=== PATIENT | male | born 1995 | race Caucasian/White ===

== ENCOUNTER 2021-11-12 16:06 | Inpatient (IN) | payer OTHER ==
[~2021-11-12] VITALS: Ht 177.8 cm; Wt 63.5 kg
[2021-11-12] MEDS ORDERED: ACETAMINOPHEN 325MG TABLET PO STA (17:04)
[2021-11-12] MEDS ORDERED: PIPERACILLIN/TAZ 3.375G PREMIX 50 ML IV NR (17:12)
[2021-11-12] MEDS ORDERED: PIPERACILLIN/TAZOBACTAM 3.375GM/50ML PREMIX IV ONE (17:15)
[2021-11-12 17:48] LABS: BASOPHILS % 1.5 % (0.0-2.0); EOSINOPHILS % 1.4 % (0.0-5.0); HEMATOCRIT. 29.9 % (42.0-52.0); HEMOGLOBIN. 9.7 g/dL (14.0-18.0); LYMPHOCYTES % 18.8 % (20.0-50.0); MEAN CORPUSCULAR HEMOGLOBIN 27.7 pg (28.0-32.0); MEAN CORPUSCULAR VOLUME 85.4 fL (80.0-94.0); MEAN PLATELET VOLUME 6.5 fl (7.4-10.4); MONOCYTES % 5.9 % (2.0-8.0); NEUTROPHILS % 72.4 % (40.0-76.0); PLATELET 798 x1000/uL (130-400); RED CELL DISTRIBUTION WIDTH 16.6 % (11.6-14.6)
[2021-11-12 18:06] LABS: CLARITY URINE TURBID (CLEAR); COLOR URINE RED (YELLOW); KETONES URINE NEGATIVE (NEGATIVE); LEUKOCYTE ESTERASE URINE 2+ (NEGATIVE); NITRITE URINE NEGATIVE (NEGATIVE); OCCULT BLOOD URINE 3+ (NEGATIVE); PROTEIN URINE 1+ (NEGATIVE); SPECIFIC GRAVITY URINE 1.027 (1.005-1.030); UROBILINOGEN URINE 0.2 E.U./dL (0.2-1.0)
[2021-11-12 18:21] LABS: CHLORIDE 109 mEq/L (98-107)
[2021-11-12] MEDS ORDERED: LACTATED RINGERS 1,800 ML IV STA (19:29)
[2021-11-12] MEDS ORDERED: LEVETIRACETAM 1000MG PREMIX 100 ML IV NR (20:52)
[2021-11-12] MEDS ORDERED: ENOXAPARIN 60MG/0.6ML SYR SUBCUT NR (21:00)
[2021-11-12] MEDS ORDERED: ONDANSETRON HCL 4MG/2ML INJ IV PRN (21:15)
[2021-11-12 21:20] LABS: INR 1.4; PARTIAL THROMBOPLASTIN TIME 34.6 sec (23.4-31.0); PROTHROMBIN TIME 14.3 sec (9.6-11.0)
[2021-11-12] MEDS ORDERED: LEVETIRACETAM 500MG PREMIX 100 ML IV SCH (21:38)
[2021-11-12] MEDS: SODIUM CHLORIDE 0.9% 1,000 ML IV SCH (22:09)
[2021-11-13 09:00] VITALS: BP 130/84
[2021-11-13] MEDS ORDERED: TOPUD MT (09:25)
[2021-11-13] MEDS ORDERED: FE300LUD MT (09:38)
[2021-11-13] MEDS ORDERED: MUC20 NEB (09:38)
[2021-11-13] MEDS ORDERED: XAR15 GT (09:38)
[2021-11-13] MEDS ORDERED: COLL30OI TP (09:38)
[2021-11-13] MEDS ORDERED: IPRA3AMP31 NEB (09:38)
[2021-11-13] MEDS ORDERED: SODI1TAB3 PO (09:38)
[2021-11-13] MEDS: LEVETIRACETAM 500MG PREMIX 100 ML IV SCH ×2 (11:35→22:35)
[2021-11-13] MEDS: SODIUM CHLORIDE 0.9% 1,000 ML IV SCH ×2 (11:35→14:31)
[2021-11-13] MEDS: ENOXAPARIN 60MG/0.6ML SYR SUBCUT SCH ×2 (11:36→22:21)
[2021-11-13 12:00] VITALS: BP 115/64
[2021-11-13] MEDS ORDERED: PNEUMOCOCCAL 23-VAL P-SAC VAC 0.5 ML IM ONE (12:30)
[2021-11-13] MEDS: LACTOBACILLUS GG CAPSULE PO SCH (14:11)
[2021-11-13] MEDS ORDERED: VANCOMYCIN 1250MG in DEXTROSE 5% WATER 250ML IV SCH (15:00)
[2021-11-13] MEDS: CEFEPIME 2,000 MG in DEXT 5% WATER 100 ML IV SCH ×2 (15:14→22:21)
[2021-11-13 15:52] LABS: EOSINOPHILS % 4.1 % (0.0-5.0); HEMATOCRIT. 28.3 % (42.0-52.0); HEMOGLOBIN. 9.3 g/dL (14.0-18.0); LYMPHOCYTES % 24.9 % (20.0-50.0); MEAN CORPUSCULAR HEMOGLOBIN 28.3 pg (28.0-32.0); MEAN CORPUSCULAR VOLUME 85.8 fL (80.0-94.0); MEAN PLATELET VOLUME 6.8 fl (7.4-10.4); MONOCYTES % 6.8 % (2.0-8.0); NEUTROPHILS % 62.2 % (40.0-76.0); PLATELET 594 x1000/uL (130-400); RED CELL DISTRIBUTION WIDTH 16.7 % (11.6-14.6)
[2021-11-13 16:00] VITALS: BP 122/84
[2021-11-13 16:15] LABS: CHLORIDE 109 mEq/L (98-107)
[2021-11-13 16:22] LABS: TOTAL IRON BINDING CAPACITY 194 ug/dL (250-450)
[2021-11-13 16:24] VITALS: BP 130/84
[2021-11-13] MEDS: IPRATROPIUM BROMIDE (0.02%) 0.5MG/2.5ML NEB HHN SCH ×2 (17:28→21:17)
[2021-11-13] MEDS: FERROUS SULFATE 300MG/5ML UDC GT SCH (18:11)
[2021-11-13 20:00] VITALS: BP 123/75
[2021-11-13] MEDS: ACETYLCYSTEINE 100MG/ML 10% VIAL 4ML INH PRN (21:18)
[2021-11-13] MEDS ORDERED: VANCOMYCIN 1 G PREMIX 200 ML IV SCH (23:00)
[2021-11-14] VITALS: BP 120/90
[2021-11-14] MEDS: IPRATROPIUM BROMIDE (0.02%) 0.5MG/2.5ML NEB HHN SCH ×6 (00:11→21:01)
[2021-11-14] MEDS: SODIUM CHLORIDE 0.9% 1,000 ML IV SCH ×2 (02:21→15:53)
[2021-11-14 04:00] VITALS: BP 139/87
[2021-11-14] MEDS ORDERED: VANCOMYCIN 1 G PREMIX 200 ML IV SCH (05:00)
[2021-11-14 06:20] LABS: BASOPHILS % 1.2 % (0.0-2.0); EOSINOPHILS % 2.1 % (0.0-5.0); HEMATOCRIT. 28.2 % (42.0-52.0); HEMOGLOBIN. 9.8 g/dL (14.0-18.0); LYMPHOCYTES % 16.5 % (20.0-50.0); MEAN CORPUSCULAR VOLUME 83.6 fL (80.0-94.0); MEAN PLATELET VOLUME 6.7 fl (7.4-10.4); MONOCYTES % 6.6 % (2.0-8.0); NEUTROPHILS % 73.6 % (40.0-76.0); PLATELET 657 x1000/uL (130-400); RED BLOOD CELL COUNT 3.37 mill/uL (4.7-6.1); RED CELL DISTRIBUTION WIDTH 16.2 % (11.6-14.6)
[2021-11-14 06:29] LABS: CHLORIDE 103 mEq/L (98-107)
[2021-11-14] MEDS ORDERED: PNEUMOCOCCAL 23-VAL P-SAC VAC 0.5 ML IM ONE (07:00)
[2021-11-14 08:00] VITALS: BP 122/83
[2021-11-14] MEDS: CEFEPIME 2,000 MG in DEXT 5% WATER 100 ML IV SCH (08:37)
[2021-11-14] MEDS: LACTOBACILLUS GG CAPSULE PO SCH (08:38)
[2021-11-14] MEDS: FERROUS SULFATE 300MG/5ML UDC GT SCH ×2 (08:38→16:45)
[2021-11-14] MEDS: LEVETIRACETAM 500MG PREMIX 100 ML IV SCH ×2 (08:38→22:24)
[2021-11-14] MEDS: ENOXAPARIN 60MG/0.6ML SYR SUBCUT SCH ×2 (08:38→22:24)
[2021-11-14 10:38] LABS: CHLORIDE 103 mEq/L (98-107)
[2021-11-14 12:00] VITALS: BP 108/79
[2021-11-14] MEDS: PIPERACILLIN/TAZOBACTAM 3.375 G in DEXTROSE 5% WATER 50 ML IV SCH ×2 (15:53→23:42)
[2021-11-14 16:00] VITALS: BP 135/96
[2021-11-14 20:00] VITALS: BP 121/75
[2021-11-15] VITALS: BP 130/91
[2021-11-15] MEDS: IPRATROPIUM BROMIDE (0.02%) 0.5MG/2.5ML NEB HHN SCH ×6 (00:13→21:49)
[2021-11-15 04:00] VITALS: BP 117/77
[2021-11-15] MEDS: PIPERACILLIN/TAZOBACTAM 3.375 G in DEXTROSE 5% WATER 50 ML IV SCH ×3 (06:06→22:06)
[2021-11-15 06:48] LABS: EOSINOPHILS % 2.6 % (0.0-5.0); HEMATOCRIT. 27.2 % (42.0-52.0); HEMOGLOBIN. 9.5 g/dL (14.0-18.0); LYMPHOCYTES % 28.2 % (20.0-50.0); MEAN CORPUSCULAR HEMOGLOBIN 28.9 pg (28.0-32.0); MEAN CORPUSCULAR VOLUME 82.4 fL (80.0-94.0); MEAN PLATELET VOLUME 6.8 fl (7.4-10.4); NEUTROPHILS % 60.2 % (40.0-76.0); PLATELET 575 x1000/uL (130-400); RED CELL DISTRIBUTION WIDTH 16.6 % (11.6-14.6)
[2021-11-15 06:54] LABS: CHLORIDE 99 mEq/L (98-107)
[2021-11-15 08:00] VITALS: BP 136/90
[2021-11-15] MEDS: FERROUS SULFATE 300MG/5ML UDC GT SCH ×2 (11:24→18:15)
[2021-11-15] MEDS: LACTOBACILLUS GG CAPSULE PO SCH (11:24)
[2021-11-15] MEDS: LEVETIRACETAM 500MG PREMIX 100 ML IV SCH ×2 (11:24→20:26)
[2021-11-15] MEDS: ENOXAPARIN 60MG/0.6ML SYR SUBCUT SCH ×2 (11:25→20:25)
[2021-11-15 12:00] VITALS: BP 143/101
[2021-11-15 16:00] VITALS: BP 138/89
[2021-11-15 20:00] VITALS: BP 115/86
[2021-11-15] MEDS: SANTYL 250 UNIT/GM TOP SCH (20:25)
[2021-11-16] VITALS: BP 121/84
[2021-11-16] MEDS: IPRATROPIUM BROMIDE (0.02%) 0.5MG/2.5ML NEB HHN SCH ×4 (01:04→21:30)
[2021-11-16] MEDS: METOPROLOL TARTRATE 5MG/5ML VIAL IV PRN ×2 (01:20→18:04)
[2021-11-16 04:00] VITALS: BP 116/76
[2021-11-16] MEDS: ACETYLCYSTEINE 100MG/ML 10% VIAL 4ML INH PRN (04:54)
[2021-11-16] MEDS: PIPERACILLIN/TAZOBACTAM 3.375 G in DEXTROSE 5% WATER 50 ML IV SCH ×3 (05:10→21:56)
[2021-11-16 07:51] LABS: BASOPHILS % 1.2 % (0.0-2.0); EOSINOPHILS % 3.9 % (0.0-5.0); HEMATOCRIT. 29.8 % (42.0-52.0); HEMOGLOBIN. 10.4 g/dL (14.0-18.0); LYMPHOCYTES % 30.2 % (20.0-50.0); MEAN CORPUSCULAR HEMOGLOBIN 29.2 pg (28.0-32.0); MEAN PLATELET VOLUME 6.6 fl (7.4-10.4); MONOCYTES % 9.1 % (2.0-8.0); NEUTROPHILS % 55.6 % (40.0-76.0); PLATELET 593 x1000/uL (130-400); RED BLOOD CELL COUNT 3.54 mill/uL (4.7-6.1); RED CELL DISTRIBUTION WIDTH 16.6 % (11.6-14.6)
[2021-11-16 08:00] VITALS: BP 122/82
[2021-11-16 08:00] LABS: CHLORIDE 101 mEq/L (98-107)
[2021-11-16] MEDS: FERROUS SULFATE 300MG/5ML UDC GT SCH ×2 (08:15→17:04)
[2021-11-16] MEDS: ENOXAPARIN 60MG/0.6ML SYR SUBCUT SCH ×2 (08:16→21:56)
[2021-11-16] MEDS: LACTOBACILLUS GG CAPSULE PO SCH (08:16)
[2021-11-16] MEDS: LEVETIRACETAM 500MG PREMIX 100 ML IV SCH ×2 (08:17→21:57)
[2021-11-16] MEDS: SANTYL 250 UNIT/GM TOP SCH (09:00)
[2021-11-16 12:00] VITALS: BP 123/77
[2021-11-16 16:00] VITALS: BP 132/64
[2021-11-16 20:00] VITALS: BP 129/81
[2021-11-17] VITALS: BP 127/94
[2021-11-17] MEDS: IPRATROPIUM BROMIDE (0.02%) 0.5MG/2.5ML NEB HHN SCH ×6 (00:54→21:15)
[2021-11-17 04:00] VITALS: BP 131/81
[2021-11-17] MEDS: PIPERACILLIN/TAZOBACTAM 3.375 G in DEXTROSE 5% WATER 50 ML IV SCH ×3 (05:23→20:47)
[2021-11-17] MEDS: ACETYLCYSTEINE 100MG/ML 10% VIAL 4ML INH PRN ×3 (07:59→21:16)
[2021-11-17 08:00] VITALS: BP 120/84
[2021-11-17] MEDS ORDERED: KEPP500 MT (08:25)
[2021-11-17] MEDS ORDERED: METOPROLOL TARTRATE 25MG TABLET PO SCH (08:30)
[2021-11-17] MEDS: LACTOBACILLUS GG CAPSULE PO SCH (09:37)
[2021-11-17] MEDS: FERROUS SULFATE 300MG/5ML UDC GT SCH ×2 (09:37→17:08)
[2021-11-17] MEDS: ENOXAPARIN 60MG/0.6ML SYR SUBCUT SCH ×2 (09:39→20:44)
[2021-11-17] MEDS: SANTYL 250 UNIT/GM TOP SCH (09:40)
[2021-11-17] MEDS: LEVETIRACETAM 500MG PREMIX 100 ML IV SCH ×2 (09:40→20:47)
[2021-11-17] MEDS ORDERED: METO25TA6 MT (10:55)
[2021-11-17 12:00] VITALS: BP 124/86
[2021-11-17 16:00] VITALS: BP 159/78
[2021-11-17 20:00] VITALS: BP 121/78
[2021-11-17] MEDS: ACETAMINOPHEN 325MG TABLET PO PRN (20:46)
[2021-11-17] MEDS: METOPROLOL TARTRATE 25MG TABLET PO SCH (20:46)
[2021-11-18] VITALS: BP 138/91
[2021-11-18] MEDS: IPRATROPIUM BROMIDE (0.02%) 0.5MG/2.5ML NEB HHN SCH ×6 (00:48→21:43)
[2021-11-18 04:00] VITALS: BP 117/81
[2021-11-18] MEDS: PIPERACILLIN/TAZOBACTAM 3.375 G in DEXTROSE 5% WATER 50 ML IV SCH ×3 (05:14→21:56)
[2021-11-18 08:00] VITALS: BP 115/56
[2021-11-18] MEDS: FERROUS SULFATE 300MG/5ML UDC GT SCH ×2 (09:28→16:55)
[2021-11-18] MEDS: ENOXAPARIN 60MG/0.6ML SYR SUBCUT SCH ×2 (09:29→20:34)
[2021-11-18] MEDS: METOPROLOL TARTRATE 25MG TABLET PO SCH (09:30)
[2021-11-18] MEDS: LACTOBACILLUS GG CAPSULE PO SCH (09:30)
[2021-11-18] MEDS: SANTYL 250 UNIT/GM TOP SCH (09:41)
[2021-11-18] MEDS: LEVETIRACETAM 500MG PREMIX 100 ML IV SCH ×2 (09:41→20:33)
[2021-11-18 12:00] VITALS: BP 116/78
[2021-11-18] MEDS ORDERED: METHYLPREDNISOLONE SOD SUCC 40 MG/ML VIAL IV NR (13:30)
[2021-11-18 15:31] LABS: BASOPHILS % 0.9 % (0.0-2.0); EOSINOPHILS % 1.1 % (0.0-5.0); HEMATOCRIT. 33.5 % (42.0-52.0); HEMOGLOBIN. 11.1 g/dL (14.0-18.0); LYMPHOCYTES % 18.2 % (20.0-50.0); MEAN CORPUSCULAR HEMOGLOBIN 27.8 pg (28.0-32.0); MEAN CORPUSCULAR VOLUME 84.4 fL (80.0-94.0); MEAN PLATELET VOLUME 6.9 fl (7.4-10.4); MONOCYTES % 5.4 % (2.0-8.0); NEUTROPHILS % 74.4 % (40.0-76.0); PLATELET 519 x1000/uL (130-400); RED BLOOD CELL COUNT 3.97 mill/uL (4.7-6.1); RED CELL DISTRIBUTION WIDTH 17.3 % (11.6-14.6)
[2021-11-18 16:00] VITALS: BP 129/86
[2021-11-18] MEDS ORDERED: DIGOXIN 500MCG/2ML AMP IV NR (16:45)
[2021-11-18] MEDS ORDERED: METOPROLOL TARTRATE 50MG TABLET PO SCH (18:00)
[2021-11-18 20:00] VITALS: BP 133/89
[2021-11-18] MEDS: ACETAMINOPHEN 325MG TABLET PO PRN (21:56)
[2021-11-19] VITALS: BP 125/85
[2021-11-19] MEDS: IPRATROPIUM BROMIDE (0.02%) 0.5MG/2.5ML NEB HHN SCH ×5 (00:41→16:47)
[2021-11-19] MEDS: ACETAMINOPHEN 325MG TABLET PO PRN ×3 (02:53→18:32)
[2021-11-19 04:00] VITALS: BP 121/79
[2021-11-19] MEDS: PIPERACILLIN/TAZOBACTAM 3.375 G in DEXTROSE 5% WATER 50 ML IV SCH (05:22)
[2021-11-19 08:00] VITALS: BP 133/88
[2021-11-19] MEDS: LACTOBACILLUS GG CAPSULE PO SCH (08:54)
[2021-11-19] MEDS: FERROUS SULFATE 300MG/5ML UDC GT SCH ×2 (08:54→16:34)
[2021-11-19] MEDS: ENOXAPARIN 60MG/0.6ML SYR SUBCUT SCH (08:55)
[2021-11-19] MEDS: SANTYL 250 UNIT/GM TOP SCH (08:55)
[2021-11-19] MEDS ORDERED: METOPROLOL TARTRATE 50MG TABLET PO SCH (09:00)
[2021-11-19] MEDS: LEVETIRACETAM 500MG PREMIX 100 ML IV SCH (09:28)
[2021-11-19 12:00] VITALS: BP 117/79
[2021-11-19] MEDS ORDERED: METO100T16 MT (12:04)
[2021-11-19] MEDS ORDERED: LEVO750T46 MT (12:05)
[2021-11-19] MEDS ORDERED: METR500T MT (12:05)
[2021-11-19 12:49] VITALS: BP 108/75
[2021-11-19] MEDS ORDERED: PIPERACILLIN/TAZOBACTAM 3.375 G in DEXTROSE 5% WATER 50 ML IV SCH (14:00)
[2021-11-19] MEDS ORDERED: APIX5TAB MT (14:54)
[2021-11-19] MEDS ORDERED: FERR-71 MT (14:54)
[2021-11-19] MEDS ORDERED: GUAI600T26 MT (14:54)
[2021-11-19 16:00] VITALS: BP 108/75
[2021-11-19] MEDS ORDERED: METOPROLOL TARTRATE 100MG TABLET PO SCH (21:00)
[2021-11-20] MEDS ORDERED: LEVETIRACETAM 500MG/5ML CUP GT SCH (09:00)
== END 2021-11-19 19:05 | disposition home health service (06) | DRG 45 ==
LOC: ER 16:06 → 7EST 20:57 → EDBEDREQ 21:05 → EDBEDREQTM 21:05 → ENRESERV 11-13 07:28
PROVIDERS: ADMIT Internal Medicine; ATTEND Internal Medicine
PROC: 4A10X4Z Monitoring of Central Nervous Electrical Activity, External Approach (ICD-10-PCS; principal; 2021-11-14)
DX: I63.9 Cerebral infarction, unspecified (principal); J69.0 Pneumonitis due to inhalation of food and vomit; G93.40 Encephalopathy, unspecified; L89.894 Pressure ulcer of other site, stage 4; E43 Unspecified severe protein-calorie malnutrition; C71.9 Malignant neoplasm of brain, unspecified; R56.9 Unspecified convulsions; N39.0 Urinary tract infection, site not specified; R13.10 Dysphagia, unspecified; G31.9 Degenerative disease of nervous system, unspecified; Z20.822 Contact with and (suspected) exposure to COVID-19; Z85.72 Personal history of non-Hodgkin lymphomas; Z92.21 Personal history of antineoplastic chemotherapy; Z93.1 Gastrostomy status; Z86.73 Personal history of transient ischemic attack (TIA), and cerebral infarction without residual deficits; Z87.440 Personal history of urinary (tract) infections; Z87.01 Personal history of pneumonia (recurrent); Z86.711 Personal history of pulmonary embolism; Z74.01 Bed confinement status; Z85.841 Personal history of malignant neoplasm of brain; Z80.7 Family history of other malignant neoplasms of lymphoid, hematopoietic and related tissues; Z91.041 Radiographic dye allergy status; Z86.718 Personal history of other venous thrombosis and embolism; R00.0 Tachycardia, unspecified; Z68.20 Body mass index [BMI] 20.0-20.9, adult
CPT/HCPCS: 36415; 70551; 71045; 71250; 74176; 80048; 80076; 80202; 81003; 82040; 83540; 83550; 83605; 83615; 84134; 84145; 84484; 85025; 87426; 90732; 93005; 93880; 94640; 95816; 97161; 99285; J0692; J1160; J1650; J1953; J2543; J2920; J3370; J3490; J7030; J7060; J7120; J7608; A4315